=== PATIENT | female | born 1935 | race Caucasian/White ===

== ENCOUNTER 2017-02-28 10:37 | Inpatient (IN) | payer OTHER, BC ==
[~2017-02-28] VITALS: Ht 152.4 cm; Wt 55.5 kg
[~2017-02-28 10:37] MED LIST: ASPIR 8181 M1 PO; ASPIRIN E.C.81 M1 PO; Cardizem CD,Cartia X PO; Ceftin PO; DuoNeb IH; ENDOCET 5-3251 EACH PO; Fosamax PO; LISINOPRIL5 MG PO; MOBIC7.5 MG PO; Mag-Ox PO; Niferex-150,Ferrex 1 PO; PriLOSEC PO; SENOKOT S,PE1 TABLET PO; Tylenol Regular Stre PO; Vancocin Oral Soluti PO; Vicodin,Lortab 5/500 PO; Vitamin D PO; ZESTRIL,PRINIVI40 M1 PO; Zestril,Prinivil PO; Zocor PO; blood thinner
[2017-02-28 11:43] LABS: HEMATOCRIT 29.1 % (36.0-46.0); MCH 33.3 PG (29.0-34.0); MCHC 35.7 G/DL (30.0-36.0); MCV 93.3 FL (83-99); PLATELET COUNT 308 K/uL (156-360); RBC DIS.WIDTH-CV 11.6 % (11.8-14.6); RED BLOOD COUNT 3.12 M/uL (3.80-5.20); WHITE BLOOD COUNT 7.9 K/uL (4.1-10.2)
[2017-02-28 11:51] LABS: CHLORIDE 90 mEq/L (99-109); POTASSIUM 3.7 mEq/L (3.7-5.4); SODIUM 126 mEq/L (136-147)
[2017-02-28 11:53] LABS: GLUCOSE 104 mg/dL (70-99)
[2017-02-28 11:55] LABS: ANION GAP 12 MEQ/L (2-14); TOTAL BILIRUBIN 1.3 mg/dL (0.0-1.0)
[2017-02-28 11:57] LABS: ALKALINE PHOSPHATASE 112 IU/L (3-129); GFR ESTIMATE (CALCULATED) > 59 mL/min/
[2017-02-28 11:58] LABS: UREA NITROGEN (BUN) 9 mg/dL (9-23)
[2017-02-28 12:00] LABS: TROP-I INTERPRETATION NEGATIVE; TROPONIN-I < 0.01 ng/mL (0.0-0.30)
[2017-02-28 14:57] LABS: ADD MIUA? YES; BILIRUBIN NEGATIVE; BLOOD MODERATE; COLOR YELLOW ((YELLOW)); GLUCOSE (STRIP) NEGATIVE; KETONES 5; LEUKOCYTES TRACE; NITRITE NEGATIVE; PROTEIN (STRIP) NEGATIVE; SPECIFIC GRAVITY 1.006 (1.000-1.030); UROBILINOGEN 0.2 MG/DL (0.2-1.0)
[2017-02-28 15:23] LABS: BACTERIA 1+ /HPF; EPITHELIAL CELLS 1+ /HPF; MUCUS NONE SEEN /LPF; UCUL ADDED? NO; WHITE BLOOD CELLS 0-5 /HPF (0-5)
[2017-02-28 15:24] LABS: CASTS NONE SEEN /LPF; CRYSTALS NONE SEEN
[2017-02-28] MEDS ORDERED: CARDIZEM CD,CA180 MG PO (15:46)
[2017-02-28] MEDS ORDERED: VITAMIN D31000 UNI2 PO (15:49)
[2017-02-28] MEDS ORDERED: FOSAMAX70 MG PO (15:49)
[2017-02-28] MEDS ORDERED: LISINOPRIL5 MG PO (15:50)
[2017-02-28] MEDS ORDERED: SIMVASTATIN40 MG PO (15:51)
[2017-02-28] MEDS ORDERED: CILOSTAZOL50 MG PO (15:53)
[2017-02-28] MEDS ORDERED: TYLENOL REGULA325 MG PO (15:54)
[2017-02-28] MEDS ORDERED: EYE OMEGA ADVA1 EACH PO (15:54)
[2017-02-28 18:19] VITALS: BP 139/63
[2017-02-28 18:31] VITALS: BP 139/63
[2017-02-28 19:21] VITALS: BP 136/60
[2017-02-28 23:34] VITALS: BP 143/67
[2017-03-01 06:08] VITALS: BP 138/66
[2017-03-01 07:07] LABS: HEMATOCRIT 29.4 % (36.0-46.0); MCH 34.2 PG (29.0-34.0); MCHC 35.4 G/DL (30.0-36.0); MCV 96.7 FL (83-99); MEAN PLAT.VOLUME 8.9 uM^3 (9.5-12.4); PLATELET COUNT 271 K/uL (156-360); RBC DIS.WIDTH-SD 42.5 % (39-53); RED BLOOD COUNT 3.04 M/uL (3.80-5.20); WHITE BLOOD COUNT 9.8 K/uL (4.1-10.2)
[2017-03-01 07:33] LABS: GFR ESTIMATE (CALCULATED) > 59 mL/min/
[2017-03-01 07:38] VITALS: BP 146/67
[2017-03-01 07:45] LABS: IMM.RETIC FRACTION 19.4 % (3-19); RETIC HGB EQUIVALENT 33.7 (28-36); RETICULOCYTE COUNT 2.6 % (0.5-1.8)
[2017-03-01 08:19] LABS: ANION GAP 16 MEQ/L (2-14); CHLORIDE 94 MEQ/L (99-109); GLUCOSE 104 mg/dL (70-99); POTASSIUM 3.8 MEQ/L (3.7-5.4); SAMPLE HEMOLYSIS CHECK 0; SAMPLE ICTERIC CHECK 0; SAMPLE LIPEMIA CHECK 0; SODIUM 130 MEQ/L (136-147); UREA NITROGEN (BUN) 6 mg/dL (9-23)
[2017-03-01 08:22] LABS: IRON < 10 MCG/DL (35-150)
[2017-03-01 11:48] VITALS: BP 129/60
[2017-03-01 15:57] VITALS: BP 115/56
[2017-03-01 20:28] VITALS: BP 122/58
[2017-03-01 23:14] VITALS: BP 133/60
[2017-03-02 06:18] VITALS: BP 119/56
[2017-03-02 06:39] LABS: MCH 34.6 PG (29.0-34.0); MCHC 36.2 G/DL (30.0-36.0); MCV 95.6 FL (83-99); MEAN PLAT.VOLUME 9.1 uM^3 (9.5-12.4); PLATELET COUNT 334 K/uL (156-360); RBC DIS.WIDTH-CV 11.9 % (11.8-14.6); RBC DIS.WIDTH-SD 41.3 % (39-53); RED BLOOD COUNT 2.72 M/uL (3.80-5.20); WHITE BLOOD COUNT 10.5 K/uL (4.1-10.2)
[2017-03-02 07:19] LABS: ANION GAP 11 MEQ/L (2-14); CHLORIDE 96 MEQ/L (99-109); GFR ESTIMATE (CALCULATED) > 59 mL/min/; GLUCOSE 92 mg/dL (70-99); POTASSIUM 3.5 MEQ/L (3.7-5.4); SAMPLE HEMOLYSIS CHECK 0; SAMPLE ICTERIC CHECK 0; SAMPLE LIPEMIA CHECK 0; SODIUM 135 MEQ/L (136-147); UREA NITROGEN (BUN) 6 mg/dL (9-23)
[2017-03-02 07:47] VITALS: BP 127/89
[2017-03-02 11:39] VITALS: BP 113/56
[2017-03-02 16:37] VITALS: BP 121/56
[2017-03-02 19:54] VITALS: BP 105/52
[2017-03-02 23:50] VITALS: BP 113/57
[2017-03-03 04:20] VITALS: BP 105/52
[2017-03-03 08:13] VITALS: BP 129/58
[2017-03-03 09:51] LABS: HEMATOCRIT 31.3 % (36.0-46.0); MCH 33.7 PG (29.0-34.0); MCHC 35.5 G/DL (30.0-36.0); MCV 95.1 FL (83-99); RBC DIS.WIDTH-CV 11.9 % (11.8-14.6); RBC DIS.WIDTH-SD 41.4 % (39-53); RED BLOOD COUNT 3.29 M/uL (3.80-5.20)
[2017-03-03 10:26] LABS: ANION GAP 12 MEQ/L (2-14); CHLORIDE 97 MEQ/L (99-109); GFR ESTIMATE (CALCULATED) > 59 mL/min/; GLUCOSE 99 mg/dL (70-99); POTASSIUM 3.8 MEQ/L (3.7-5.4); SAMPLE HEMOLYSIS CHECK 1; SAMPLE ICTERIC CHECK 0; SAMPLE LIPEMIA CHECK 0; SODIUM 139 MEQ/L (136-147); UREA NITROGEN (BUN) 5 mg/dL (9-23)
[2017-03-03 11:14] LABS: MEAN PLAT.VOLUME 9.8 uM^3 (9.5-12.4); PLATELET COUNT 333 K/uL (156-360)
[2017-03-03 11:15] LABS: HEMATOLOGY COMMENT 1 SMEAR COMPATIBLE; PLAT.SUFFICIENCY INCREASED
[2017-03-03 11:16] VITALS: BP 138/80
[2017-03-03 15:29] VITALS: BP 134/68
[2017-03-03 19:41] VITALS: BP 134/63
[2017-03-04] VITALS (7 sets, daily range): BP systolic 106–130; BP diastolic 51–64
[2017-03-04 07:10] LABS: HEMATOCRIT 27.4 % (36.0-46.0); MCH 33.5 PG (29.0-34.0); MCHC 34.7 G/DL (30.0-36.0); MCV 96.5 FL (83-99); MEAN PLAT.VOLUME 9.1 uM^3 (9.5-12.4); PLATELET COUNT 383 K/uL (156-360); RBC DIS.WIDTH-CV 12.3 % (11.8-14.6); RBC DIS.WIDTH-SD 42.7 % (39-53); RED BLOOD COUNT 2.84 M/uL (3.80-5.20)
[2017-03-04 07:40] LABS: TROP-I INTERPRETATION NEGATIVE; TROPONIN-I 0.02 ng/mL (0.0-0.30)
[2017-03-04 07:49] LABS: ANION GAP 11 MEQ/L (2-14); CHLORIDE 97 MEQ/L (99-109); POTASSIUM 3.7 MEQ/L (3.7-5.4); SAMPLE HEMOLYSIS CHECK 0; SAMPLE ICTERIC CHECK 0; SAMPLE LIPEMIA CHECK 0; SODIUM 138 MEQ/L (136-147)
[2017-03-04 07:55] LABS: GFR ESTIMATE (CALCULATED) > 59 mL/min/; GLUCOSE 122 mg/dL (70-99); UREA NITROGEN (BUN) 6 mg/dL (9-23)
[2017-03-05 03:55] VITALS: BP 100/56
[2017-03-05 09:31] VITALS: BP 108/59
[2017-03-05 10:25] LABS: ANION GAP 12 MEQ/L (2-14); CHLORIDE 98 MEQ/L (99-109); POTASSIUM 3.9 MEQ/L (3.7-5.4); SAMPLE HEMOLYSIS CHECK 0; SAMPLE ICTERIC CHECK 0; SAMPLE LIPEMIA CHECK 0; SODIUM 141 MEQ/L (136-147)
[2017-03-05 10:31] LABS: GFR ESTIMATE (CALCULATED) > 59 mL/min/; GLUCOSE 93 mg/dL (70-99); UREA NITROGEN (BUN) 11 mg/dL (9-23)
[2017-03-05 10:38] LABS: HEMATOCRIT 25.7 % (36.0-46.0); MCH 33.3 PG (29.0-34.0); MCHC 33.5 G/DL (30.0-36.0); MCV 99.6 FL (83-99); RBC DIS.WIDTH-CV 12.7 % (11.8-14.6); RBC DIS.WIDTH-SD 45.9 % (39-53); RED BLOOD COUNT 2.58 M/uL (3.80-5.20); WHITE BLOOD COUNT 12.2 K/uL (4.1-10.2)
[2017-03-05 10:41] LABS: MEAN PLAT.VOLUME 9.6 uM^3 (9.5-12.4); PLATELET COUNT 444 K/uL (156-360)
[2017-03-05] MEDS ORDERED: FERROUS SULFAT325 MG PO (12:17)
[2017-03-05] MEDS ORDERED: DILTIAZEM 24HR120 MG PO (12:18)
[2017-03-05 12:33] VITALS: BP 123/72
[2017-03-05 16:29] VITALS: BP 136/63
== END 2017-03-05 18:48 | DRG 511 ==
LOC: EME 10:37 → EDOF 13:59 → 3EAST 15:54
PROVIDERS: Internal Medicine; Internal Medicine Cardiovascular Disease; Nurse Practitioner Family
PROC: 0PSL04Z Reposition Left Ulna with Internal Fixation Device, Open Approach (ICD-10-PCS; principal; 2017-03-03)
DX: S52.022A Displaced fracture of olecranon process without intraarticular extension of left ulna, initial encounter for closed fracture (principal); S42.292A Other displaced fracture of upper end of left humerus, initial encounter for closed fracture; W01.0XXA Fall on same level from slipping, tripping and stumbling without subsequent striking against object, initial encounter; Y92.000 Kitchen of unspecified non-institutional (private) residence as the place of occurrence of the external cause; E87.1 Hypo-osmolality and hyponatremia; E86.0 Dehydration; I35.0 Nonrheumatic aortic (valve) stenosis; R29.6 Repeated falls; F03.90 Unspecified dementia, unspecified severity, without behavioral disturbance, psychotic disturbance, mood disturbance, and anxiety; I44.0 Atrioventricular block, first degree; I45.10 Unspecified right bundle-branch block; M81.0 Age-related osteoporosis without current pathological fracture; D50.9 Iron deficiency anemia, unspecified; E78.00 Pure hypercholesterolemia, unspecified; E78.5 Hyperlipidemia, unspecified; I10 Essential (primary) hypertension; I73.9 Peripheral vascular disease, unspecified; M54.2 Cervicalgia; M54.9 Dorsalgia, unspecified; F17.200 Nicotine dependence, unspecified, uncomplicated
CPT/HCPCS: 70450; 71010; 72125; 72170; 73060; 73070; 76000; 80048; 80053; 81003; 82272; 82607; 82746; 83540; 84466; 84484; 85027; 85045; 87086; 93005; 93306; 94799; 99281; 99285; C1766; G0378; J0131; J0690; J1100; J1170; J1644; J2270; J2405; J3010; J7030; J7120; S0020

== ENCOUNTER → 2017-11-25 | Outpatient (CLI) | payer OTHER ==
[~2017-11-25] MED LIST changes: +CARDIZEM CD,CA180 MG PO; +CILOSTAZOL50 MG PO; +DILTIAZEM 24HR120 MG PO; +EYE OMEGA ADVA1 EACH PO; +FERROUS SULFAT325 MG PO; +FOSAMAX70 MG PO; +SIMVASTATIN40 MG PO; +TYLENOL REGULA325 MG PO; +VITAMIN D31000 UNI2 PO
== END | disposition home or self-care (01) ==
DX: Z87.01 Personal history of pneumonia (recurrent) (principal); R13.12 Dysphagia, oropharyngeal phase; J44.9 Chronic obstructive pulmonary disease, unspecified; C04.9 Malignant neoplasm of floor of mouth, unspecified; Z98.890 Other specified postprocedural states; Z92.3 Personal history of irradiation
CPT/HCPCS: 92611 GN; G8996 GN; G8997 GN; G8998 GN